=== PATIENT | female | born 1950 | race Caucasian/White ===

== ENCOUNTER 2017-01-11 06:28 | Day surgery (SDC) | payer MEDICARE ==
[~2017-01-11] VITALS: Ht 167.6 cm; Wt 104.8 kg
[~2017-01-11 06:28] MED LIST: ADULT LOW DOSE81 MG PO; ALLOPURINOL300 MG PO; AMLODIPINE BES2.5 MG PO; CALCIUM + VITA1 EACH PO; CALCIUM 600+D31 EACH PO; CVS GLUCOSAMIN PO; CYCLOBENZAPRINE10 MG PO; GLIPIZIDE XL5 MG PO; HYDROCODON-ACE1 EA11 PO; HYDROCODON-ACE1 EAC8 PO; HYDROMORPHONE HC2 MG PO; HYDROMORPHONE HC4 MG PO; LEVEMIR100 UNIT/1 SUB-Q; LISINOPRIL40 MG PO; MELATONIN10 M2 PO; MELOXICAM15 MG PO; MIRALAX17 GM PO; MULTI VITAMIN1 EACH PO; NABUMETONE750 MG PO; SIMVASTATIN40 MG PO; SYNTHROID75 MCG PO; XARELTO10 MG PO
--- NOTE | 2017-01-11 07:17 | NUR ---
0630-PATIENT ARRIVED FOR COLONOSCOPY TODAY. REPORTS FELL LAST NIGHT IN WHICH EMS CAME TO HOUSE BUT WAS NOT TRANSPORTED TO HOSPITAL. PATIENT REPORTS LEFT LEG AND LEFT BIG TOE HURTING. PATIENT REPORTS FEELING WEAK. LEFT BIG TOE REDDENED AND A LITTLE BRUISED. PATIENT WAS ABLE TO WALK FROM HOUSE TO THE CAR WITH WALKER THIS AM. WILL UPDATE MD AND DISCUSSED WITH PATIENT ABOUT CALLING PCP THIS AM AND LETTING KNOW. DAUGHTER AT BEDSIDE AND VERBALIZED UNDERSTANDING.
--- NOTE | 2017-01-11 08:03 | NUR ---
01/11/17 0803 IsaiahDeepak holbrook SAT 98%, O2 TURNED OFF.
--- NOTE | 2017-01-11 17:49 | OR ---
[facility] [address] [place], [place] [address] Signed DATE OF PROCEDURE: 01/11/17 PREOPERATIVE DIAGNOSIS: Screening. POSTOPERATIVE DIAGNOSES Large external hemorrhoids. Internal anal skin tag. Minimal to moderate sigmoid diverticulosis. PROCEDURE: Colonoscopy without biopsy. ESTIMATED BLOOD LOSS: None. INDICATIONS Eric is a 66-year-old female who was asked to see me for a screening colonoscopy. She says she has no lower GI complaints. She has never had a previous colonoscopy. There is no family history of colon cancer or polyps. In the office, I gave Eric pamphlet on colonoscopy and we have reviewed the nature of the test along with the risks including, but not limited to gas bloating, crampy abdominal pain, bleeding, perforation requiring surgery, and missed diagnosis. We also discussed the need for IV conscious sedation. She had expressed understanding, wished to proceed. PROCEDURE IN DETAIL Eric was taken into our endoscopy suite and placed in the left lateral decubitus position. She was given 125 mcg of Fentanyl and 6 mg of Versed for the procedure. A digital rectal exam was performed and she has large circumferential external hemorrhoids. We also gave her preoperative antibiotics. She also told us that she fell last evening and has had some bruising on her on her left hip and she also has gout and her toe was quite swollen and red. Apparently, the EMS came but she was not taken to the hospital. She is encouraged to see her primary care provider with respect to the above. After this, the adult colonoscope was introduced and advanced all around into the cecum under direct visualization of camera without difficulty. Her prep was generally good. There were a couple areas of liquid stool, I could not quite irrigate out completely but for the most part it was good. The scope was then slowly withdrawn. We could easily see the cecum in the ileocecal valve. We saw diverticula in the left and sigmoid colon. They were minimal to moderate in size in number and scattered about. The rectum itself was unremarkable. Upon retroflexion of scope, she has a single moderate-sized internal anal skin tag. After this, the gas was suctioned out. The colonoscope removed. Eric tolerated the procedure quite well. RECOMMENDATIONS Eric will follow up me in 10 years for repeat colonoscopy. She is also going to come Electronically Signed By: NIEVES VÁSQUEZ MD 01/11/17 1749 PATIENT NAME: ERIC RIVERA OPERATIVE REPORT DATE OF : 46 PHYSICIAN: NIEVES VÁSQUEZ MD REPORT #: [id number] REPORT IS CONFIDENTIAL AND NOT TO BE RELEASED WITHOUT AUTHORIZATION [facility] [address] [place] [id number] Signed back to the office for subcutaneous mass on her inner right thigh. MD MALLIKA Amezquita/Derejel /[id number] cc: Ernst Jaramillo MD Electronically Signed By: NIEVES VÁSQUEZ MD 01/11/17 1749 PATIENT NAME: ERIC RIVERA OPERATIVE REPORT DATE OF : 46 PHYSICIAN: NIEVES VÁSQUEZ MD REPORT #: [id number] REPORT IS CONFIDENTIAL AND NOT TO BE RELEASED WITHOUT AUTHORIZATION
== END 2017-01-11 08:30 | disposition home or self-care (01) ==
LOC: DS 06:28 → OPS 06:28 → DS 06:45 → OPS 08:30
PROVIDERS: Colon & Rectal Surgery
PROC: 0DJD8ZZ Inspection of Lower Intestinal Tract, Via Natural or Artificial Opening Endoscopic (ICD-10-PCS; principal; 2017-01-11 06:45)
DX: Z12.11 Encounter for screening for malignant neoplasm of colon (principal); K64.8 Other hemorrhoids; K64.4 Residual hemorrhoidal skin tags; K57.30 Diverticulosis of large intestine without perforation or abscess without bleeding; I10 Essential (primary) hypertension; J45.909 Unspecified asthma, uncomplicated; E78.5 Hyperlipidemia, unspecified; E66.9 Obesity, unspecified; E11.9 Type 2 diabetes mellitus without complications; M19.90 Unspecified osteoarthritis, unspecified site; M10.9 Gout, unspecified; E11.42 Type 2 diabetes mellitus with diabetic polyneuropathy; F41.9 Anxiety disorder, unspecified; Z90.49 Acquired absence of other specified parts of digestive tract; Z90.710 Acquired absence of both cervix and uterus; Z96.653 Presence of artificial knee joint, bilateral; Z79.899 Other long term (current) drug therapy; Z79.82 Long term (current) use of aspirin; Z98.890 Other specified postprocedural states; Z87.891 Personal history of nicotine dependence; Z88.1 Allergy status to other antibiotic agents; Z88.0 Allergy status to penicillin; Z91.041 Radiographic dye allergy status; Z91.013 Allergy to seafood; Z88.8 Allergy status to other drugs, medicaments and biological substances; Z68.39 Body mass index [BMI] 39.0-39.9, adult
CPT/HCPCS: 99152; 99153; J2250; J3010; J3490; J7120

== ENCOUNTER 2017-01-19 05:40 | Day surgery (SDC) | payer MEDICARE ==
[~2017-01-19] VITALS: Ht 167.6 cm; Wt 104.8 kg
--- NOTE | 2017-01-19 08:34 | NUR ---
[facility]/17 [facility]34 [facility] O2 DECREAS[facility] TO 6L.
--- NOTE | 2017-01-22 10:35 | OR ---
[facility] [address] [place], [place] [address] Signed DATE OF PROCEDURE: 01/19/17 PREOPERATIVE DIAGNOSIS Right inner thigh subcutaneous mass (approximately 10 cm). POSTOPERATIVE DIAGNOSIS Right inner thigh subcutaneous mass (approximately 10 cm). PROCEDURE Excision of right thigh subcutaneous mass. ESTIMATED BLOOD LOSS: None. INDICATIONS Eric is a 66-year-old obese diabetic female who removed all the carbohydrates from her diet and dropped 200 pounds. She ended up with a panniculectomy in the [facility]. She said that that has been a life changer. She also has a very large lump on the right inner midthigh. It is approaching 10 cm. On the top, it is very hard and indurated and underneath it is very soft. It rubs on the other her other thigh and it is quite irritated. To her knowledge, it has never drained or been infected. She had me look at to consider having it removed. I explained to Eric it is just too large to remove under superior local anesthetic in the office. Consequently, we scheduled her for monitored anesthesia care and local anesthetic over the hospital. Indeed we had an extra nurse scrub in because in order to hold the redundant skin in order to excise this lesion. I explained to Eric the nature of the surgery along with the risks including, but not limited to bleeding, infection, scarring, change in contour of the skin, as well as possible need for additional surgery based on pathology results. She had expressed understanding and wished to proceed. PROCEDURE NOTE I met with Eric in our preop area with our nurse. We all could easily identify her lesion. We marked that appropriately. She was then taken into our operating room and placed in the supine position under monitored anesthesia care per our nurse doughmaker. We used appropriate padding. We brought her right leg up so we could access the right inner thigh. It was then prepped and draped in the usual sterile fashion. She was given preoperative antibiotics along with subcutaneous heparin. SCDs were utilized. We then made a vertical incision over the lesion went down around the lesion bluntly and with the cautery. It was at least a size of soft baseball. We felt we had the entire lesion removed. She had very thin redundant skin over the center portion and so we excised that redundant skin back to more healthy thicker skin. We then used 3-0 interrupted subcuticular Monocryl suture to bring the dermis together. The skin edges were reapproximated with a running 6-0 fast absorbing plain gut suture. We had used local Electronically Signed By: NIEVES VÁSQUEZ MD 01/19/17 1316 Electronically Signed By: NIEVES VÁSQUEZ MD 01/23/17 0540 PATIENT NAME: ERIC RIVERA OPERATIVE REPORT DATE OF : 46 PHYSICIAN: NIEVES VÁSQUEZ MD REPORT #: [id number] REPORT IS CONFIDENTIAL AND NOT TO BE RELEASED WITHOUT AUTHORIZATION [address] [address] Signed anesthetic completely around the lesion and underneath the lesion prior to the excision. After this, dry gauze and tape was applied. She was then transferred to her hospital bed and taken in to the recovery room in stable condition. MD MALLIKA Amezquita/Modl /[id number] cc: Ernst Jaramillo MD Electronically Signed By: NIEVES VÁSQUEZ MD 01/19/17 1316 Electronically Signed By: NIEVES VÁSQUEZ MD 01/23/17 0540 PATIENT NAME: ERIC RIVERA OPERATIVE REPORT DATE OF : 46 PHYSICIAN: NIEVES VÁSQUEZ MD REPORT #: [id number] REPORT IS CONFIDENTIAL AND NOT TO BE RELEASED WITHOUT AUTHORIZATION
== END 2017-01-19 09:10 | disposition home or self-care (01) ==
LOC: DS 05:40
PROVIDERS: Colon & Rectal Surgery
PROC: 0JBL0ZZ Excision of Right Upper Leg Subcutaneous Tissue and Fascia, Open Approach (ICD-10-PCS; principal; 2017-01-19 06:45)
DX: D17.23 Benign lipomatous neoplasm of skin and subcutaneous tissue of right leg (principal); E78.5 Hyperlipidemia, unspecified; J45.909 Unspecified asthma, uncomplicated; E66.9 Obesity, unspecified; E03.9 Hypothyroidism, unspecified; M19.90 Unspecified osteoarthritis, unspecified site; M10.9 Gout, unspecified; E11.40 Type 2 diabetes mellitus with diabetic neuropathy, unspecified; F41.9 Anxiety disorder, unspecified; I10 Essential (primary) hypertension; Z96.653 Presence of artificial knee joint, bilateral; Z90.49 Acquired absence of other specified parts of digestive tract; Z98.890 Other specified postprocedural states; Z68.39 Body mass index [BMI] 39.0-39.9, adult
CPT/HCPCS: 00400; 88304; 88311; J0690; J1100; J1644; J1885; J2250; J2405; J2704; J3010; J7120

== ENCOUNTER 2018-04-14 11:12 | Observation (INO) | payer MEDICARE ==
[~2018-04-14] VITALS: Ht 167.6 cm; Wt 122.0 kg
[~2018-04-14 11:12] MED LIST changes: +BACLOFEN20 MG PO; +BAYER CHEWABLE81 MG PO; +FAMOTIDINE40 MG PO; +GABAPENTIN600 MG PO; +INTRINSI B12-F1 EACH PO; +KEFLEX500 MG PO; +MOBIC15 MG PO
[2018-04-14] MEDS ORDERED: DILAUDID4 MG PO (12:10)
[2018-04-14] MEDS ORDERED: NORCO 5-325 TA1 EACH PO (12:11)
[2018-04-14] MEDS ORDERED: HYDROXYZINE PAM25 MG PO (13:00)
--- NOTE | 2018-04-14 14:22 | EKG ---
[facility] [address] [facility] [place] [address] Signed Normal sinus rhythm Possible Left atrial enlargement Cannot rule out Inferior infarct , age undetermined Abnormal ECG When compared with ECG of 26-DEC-2016 13:19, Minimal criteria for Inferior infarct are now present T wave inversion now evident in Inferior leads Confirmed by OLGA NORTON DO ([id number]) on 04/14/2018 2:22:21 PM Electronically Signed By: OLGA NORTON DO 04/14/18 1422 PATIENT NAME: ERIC RIVERA DERICKPRAVIN Electrocardiogram DATE OF : 46 PHYSICIAN: OLGA NORTON DO REPORT #: [id number] REPORT IS CONFIDENTIAL AND NOT TO BE RELEASED WITHOUT AUTHORIZATION
--- NOTE | 2018-04-14 17:00 | NUR ---
PT ARRIVED FROM ED. PT TRANSFERED WITH 4PA TO BED. ASSESSMENT DONE. PT ORIENTED TO ALL BUT DATE. CONFUSED AT TIMES. SURGICAL SITE WOUND ON BACK - CDI; ABRASION NOTED UNDER RIGHT SIDED PANNUS; WOUND NOTED ON MONDS - POSSIBLE ABCESS. PT REPORTS 4/10 PAIN AND DENIES NAUSEA. PT ASSISTED WITH ORDERING DINNER. PIVS ASSESSED, PIV IN LEFT AC INFILTRATING, DCD' PER PROTOCOL GAUZE AND COBAN APPLIED. BED RAILS UP. CALL LIGHT WITHIN REACH. SON AT BEDSIDE. NO ADDITIONAL REQUESTS OR COMPLAINTS AT THIS TIME.
--- NOTE | 2018-04-14 18:32 | NUR ---
PT ADMITTED FROM ED TODAY FOR UTI AND ENCEPHALOPATHY. PT ORIENTED TO ALL BUT DATE, CONFUSED AND ANXIOUS AT TIMES. ADA DIET WITH BLOOD SUGAR CHECKS AND SLINDING SCALE INSULIN, 4 UNITS GIVEN THIS EVENING. PT RECENT POST OP, DISCHARGED 2 DAYS AGO AFTER LUMBAR FUSION SURGERY. DRESSING REMAINS IN PLACE, CDI AT THIS TIME. IV POTASSIUM STARTED THIS EVENING. PO NORCO GIVEN X1 FOR 7/10 PAIN. CEFEPIME INFUSING. DEPENDS IN PLACE, VOIDING QUANTITY SUFFICIENT THIS SHIFT, STRAIGHT CATH IN ED. BED ALAMAM ON. PT USES CALL LIGHT INCONSISITNATLY.
--- NOTE | 2018-04-14 19:03 | NUR ---
PUMPS CONTINUE TO ALARM. PIV ASSESSED, FLUSHES EASILY IN STRIGHT POSITION. IV FLUIDS AND CEFEPIME CONTINUE TO INFUSE. NEW PIV STARTED IN LEFT FORARM PER PROTOCOL. BLOOD RETURN NOTED WITH IV START. NEW LINE INFUSING POTASSIUM FLUIDS AT 250. PT FINISHED WITH DINNER. NO REQUESTS OR COMPLAINTS AT THIS TIME. FAMILY AT BEDSIDE. CALL LIGHT WITHIN REACH.
--- NOTE | 2018-04-14 19:20 | NUR ---
BEDSIDE REPORT RECEIVED FROM OFFGOING RN. PT RESTING IN BED WITH DAUGHTER AT BEDSIDE. PT PARTICIPATES IN REPORT, REPORTS FORGETFULNESS. DENIES FURTHER NEEDS AT THIS TIME. CALL LIGHT WITHIN REACH.
--- NOTE | 2018-04-14 20:51 | NUR ---
PT UTILIZES CALL LIGHT, DAUGHTER AT BEDSIDE. DAUGHTER AND PT EXPRESS CONCERN THAT PT WAS NOT ORDERED HER DILAUDID WAS PREVIOUSLY BEING USED PRIOR TO ADMISSION. PT STATES THAT THE DOCTOR "THOUGHT IT WAS MAKING ME CONFUSED, BUT IT WASN'T. IT WAS JUST THE UTI." PT STATES THAT PAIN TO BACK IS 7/10. MD NOTIFIED OF PT AND FAMILY'S CONCERN, DECLINES TO ORDER HYDROMORPHONE AT THIS TIME. EDUCATION REGARDING NARCOTIC PAIN MEDICATION AND CONFUSION TO BE REINFORCED.
--- NOTE | 2018-04-14 21:30 | NUR ---
PT ASSESSMENT COMPLETE. PT REPORTING PAIN 7/10 TO BACK. PRN HYDROCODONE TO BE ADMINISTERED. PT DENIES NAUSEA OR SOB AT THIS TIME. ATTENDS IN PLACE FOR INCONTINENCE, DRY AT THIS TIME. ALLEVYN FOAM TO R UNDER PANNUS, C/D/I. HARDENED LUMP 1CMX 1CM TO MONS PUBIS WITH PURULENT DRAINAGE PRESENT. SURGICAL DRESSING PRESENT TO PT'S LOWER BACK. C/D/I. REDNESS/ OLD BLISTERS PRESENT TO LOWER BACK. PT STATES THAT SHE WAS ALLERGIC TO PREVIOUS SURGICAL DRESSING. PT REQUESTS THAT LEG BE REPOSITIONED DUE TO "SCIATIC PAIN". LEG PROPPED WITH PILLOW. HEEL PROTECTORS PLACED FOR PT COMFORT. PT DENIES FURTHER NEEDS AT THIS TIME. CALL LIGHT WITHIN REACH.
--- NOTE | 2018-04-14 22:30 | NUR ---
PT RESTING IN BED AWAKE AFTER HAVING ATTENDS CHANGED. PT STATES THAT PAIN IS MUCH BETTER, RATES 4/10. SCHEDULED ABX ADMINISTERED ORDERED. PT DENIES FURTHER NEEDS AT THIS TIME. CALL LIGHT WITHIN REACH.
--- NOTE | 2018-04-14 23:13 | NUR ---
V/S AND I&O DONE AND CHARTED. BRUNO DASILVA AND I CLEANED AND CHANGED PATIENT'S ATTENDS. CALL LIGHT AND SIDE TABLE WITHIN REACH.
--- NOTE | 2018-04-15 02:47 | NUR ---
PT ASSESSMENT COMPLETE. PT RATES PAIN 11/16 TO BACK AND LLE. PRN NORCO ADMINISTERED. PT ORIENTED TO ALL. ATTENDS CHANGED, PT INCONTINENT. NEW ATTENDS IN PLACE. ALLEVYN FOAM TO UNDER PANNUS C/D/I. DRESSING TO LOW BACK C/D/I. NEW ICE WATER PROVIDED. PT DENIES FURTHER NEEDS AT THIS TIME. CALL LIGHT WITHIN REACH.
--- NOTE | 2018-04-15 06:33 | NUR ---
PT RESTING IN BED WITH EYES CLOSED. PT WAKES EASILY TO VOICE. PT RATES PAIN 4-5/10 WHEN SHE IS NOT MOVING. PT STATES PAIN UP TO 7-8/10 WHEN SHE MOVES. PT INFORMED TOO EARLY TO HAVE PACO, SHE STATES UNDERSTANDING. PT ASSESSMENT COMPLETE. UNCHANGED FROM PREVIOUS. SUPERVISOR CAP AND HAT PRODUCTION'S IN ROOM TO CHANGE AND REPOSITION PT. PT DENIES FURTHER NEEDS AT THIS TIME.
--- NOTE | 2018-04-15 09:05 | NUR ---
PT LYING IN BED. ATE A SMALL AMOUNT OF BREAKFAST BUT STATES "IT JUST DOESN'T SOUND THAT GOOD." REFUSED OFFER OF ENSURE. PT DENIES PAIN AT REST BUT STATES "WHEN I MOVE IT HURTS REALLY BAD". ALERT AND ORIENTED THIS AM. CALL LIGHT WITHIN REACH.
--- NOTE | 2018-04-15 10:05 | NUR ---
SPOKE WITH PATIENT IN ROOM. PATIENT STATES SHE FEELS BETTER TODAY. STATES SHE HAD A WEIRD DREAM LAST NIGHT AND WAS CONFUSED FOR A COUPLE DAYS. SHE STATES SHE LIVES WITH DAUGHTER MAYE AND PLANS TO RETURN HOME WITH HER. SHE HAS A 2WHEEL WALKER AT HOME. HAS 2 STEPS GOING INTO HOME, BUT NO OTHER STAIRS. PATIENT VERY TALKATIVE ABOUT HER HISTORY AND STATES SHE DOESN'T WANT TO GO TO A LONG TERM AT DISCHARGE. DISCUSSED WE WILL WORK TOWARDS HER GOAL OF HOME DISCHARGE. WILL CONTINUE TO FOLLOW FOR DISCHARGE.
--- NOTE | 2018-04-15 10:30 | NUR ---
PATIENT CLEANED UP AND DEP[ENDS CHANGED BY THIS CARRIAGE DOGGER AND CARRIAGE DOGGERDelmar LOWE. CALL LIGHT IN REACH. NO FURTHER NEEDS AT THIS TIME.
--- NOTE | 2018-04-15 11:05 | NUR ---
PT LYING IN BED WATCHING TV. DENIES NEEDS OR CONCERNS AT THIS TIME. CHANGED RECENTLY BY TRAIN GATE ATTENDANT'S. PT REMAINS FULLY ALERT AND ORIENTED AT THIS TIME. CALL LIGHT WITHIN REACH.
--- NOTE | 2018-04-15 12:51 | NUR ---
PT LAYING IN BED, ALERT AND ORIENTED. UNDER THE CIRCUMSTANCES SHE WAS IN GOOD SPIRITS-EVEN ABLE TO LAUGH AND JOKE SOME. R HAND IN PAIN, SEVERLY BRUISED SHE SAID FROM EMT ATTEMPT TO START IV. PT REQUESTED PRAYER, WILL FOLLOW NEDED
--- NOTE | 2018-04-15 13:41 | NUR ---
PT ATTENDS CHANGED. REPOSITIONED IN BED. MEDICATED WITH PRN NORCO FOR 5/10 BACK PAIN. MADE PLAN TO RETURN SHORTLY TO ASSIST PT TO SIT AT EDGE OF BED. PT AGREEABLE AT THIS TIME. CALL LIGHT WITHIN REACH.
--- NOTE | 2018-04-15 16:04 | NUR ---
PT ASSISTED TO EDGE OF BED WITH ASSISTANCE FROM MYNOR CARR AND ELIZABETH CARR. DRESSING TO LOWER BACK NOTED TO BE SOILED. REMOVED AT THIS TIME. DR. MILLER ASSESSED SITE. CLEANED GENTLY WITH STERILE SALINE AND DRESSED WITH GAUZE AND OPSITE PER DR. MILLER. PT DIANA SITTING AT EDGE OF BED. ASSISTED BACK TO BED AND ASSISTED TO POSITION OF COMFORT. ATTENDS CHANGED PRIOR TO SITTING UP. CALL LIGHT WITHIN REACH.
--- NOTE | 2018-04-15 18:40 | NUR ---
PT REFUSED DINNER. MEDICATED WITH PRN NORCO PER REQUEST FOR 510 PAIN. HAS REMAINED ALERT AND ORIENTED THROUGHOUT SHIFT. CALL LIGHT WITHIN REACH.
--- NOTE | 2018-04-15 19:10 | NUR ---
BEDSIDE REPORT RECEIVED FROM OFFGOING RN. PT ABLE TO PARTICIPATE IN REPORT, AGREES THAT SHE IS MUCH MORE ORIENTED AT THIS TIME. PT DENIES NEEDS. CALL LIGHT WITHIN REACH.
--- NOTE | 2018-04-15 21:19 | NUR ---
PT ASSESSMENT COMPLETE. PT RESTING IN BED AWAKE, VS BEING PERFORMED BY PAYROLL AND BENEFITS MANAGER. PT STATES THAT PAIN IS 5/10 WHEN NOT MOVING, 8/10 WITH MOVEMENT. PT INFORMED TOO EARLY FOR PRN, PT STATES UNDERSTANDING. PT WOULD LIKE PRN WHEN AVAILABLE. PT ORIENTED X 4, PT DISCUSSING LUCID DREAMS FROM PREVIOUS NIGHT. DRESSING TO LOW BACK C/D/I. FOAM DRESSING TO R UNDER PANNUS C/D/I. ATTENDS IN PLACE FOR INCONTINENCE, CHAGNED AT THIS TIME. PT REPOSITIONED AND PROPPED WITH PILLOWS. GENERALIZED EDEMA PRESENT TO ALL EXTREMITIES. PT DENIES FURTHER NEEDS AT THIS TIME. CALL LIGHT WITHIN REACH.
--- NOTE | 2018-04-15 23:12 | NUR ---
PT UTILIZES CALL LIGHT, REQUESTS PRN PAIN MEDICATION. PT STATES PAIN IS 9.5/10 "THE ONLY REASON I DON'T SAY 10/10 IS BECAUSE I'M NOT IN A BUCKET OF TEARS". PRN NORCO ADMINISTERED. PT STATES "OH, AND I NEED TO BE CHANGED". INQUIRED WHETHER PT TYPICALLY IS INCONTINENT AT HOME. PT STATES THAT SHE IS NOT. CNA HHA ASKS WHY PT IS NOT SUING THE BATHROOM SINCE ADMISSION TO THE HOSPITAL. PT STATES BECAUSE SHE "WOULD BE ON THE TOILET NON-STOP". PT ENCOURAGED TO USE THE BATHROOM WHEN ABLE, TO USE CALL LIGHT WHEN SHE FEELS THE URGE TO VOID. EDUCATION RPOVIDED REGARDING RISK FACTORS FOR UTI'S. PT STATES UNDERSTANDING. DENIES FURTHER NEEDS AT THIS TIME. CALL LIGHT WITHIN REACH.
--- NOTE | 2018-04-16 01:11 | NUR ---
2 PA CHANGED PATIENT'S ATTENDS.
--- NOTE | 2018-04-16 01:30 | NUR ---
RN TO ROOM FOR IV ALARMING. PT LYING IN BED AWAKE. PT RATES PAIN 4-5/10. STATES IT IS MUCH BETTER CONTROLLED AT THIS TIME. PT REQUESTS FRESH ICE WATER, PROVIDED. PT STATES "I DON'T KNOW WHY I NEED WATER, I'M GOING BACK TO SLEEP." CALL LIGHT IN REACH.
--- NOTE | 2018-04-16 03:30 | NUR ---
PT ASSESSMENT COMPLETE. PT UTILIZES CALL LIGHT, REQUESTS PRN PAIN MEDICATION FOR 5/10 BACK PAIN. ASSESSMENT UNCHANGED FROM PREVIOUS. PT DENIES FURTHER NEEDS AT THIS TIME. CALL LIGHT WITHIN REACH.
--- NOTE | 2018-04-16 06:10 | NUR ---
PT SLEPT MAJORITY OF SHIFT. NORCO X2 FOR PAIN. ATTENDS IN PLACE. PT STATES SHE TYPICALLY USES BATHROOM AT HOME. ENCOURAGE PT TO USE BATHROOM RATHER THAN ATTENDS. DRESSING TO LOW BACK C/D/I. ALLEVYN FOAM UNDER PANNUS C/D/I. ACCUCHECKS AND SSI. ADA DIET. LOW APPETITE, ENCOURAGE INTAKE. CEFEPIME. LR @ 75. 2 PA.
--- NOTE | 2018-04-16 08:50 | NUR ---
PT LYING IN BED AWAKE. ALERT AND ORIENTED TO ALL. RATING PAIN 5/10. MEDICATED WITH PRN NORCO. ATE A COUPLE BITES OF BREAKFAST BUT STATES IT DOESN'T TASTE GOOD IT SOUNDED. DENIES WANTING ANYTHING ELSE TO EAT AT THIS TIME. PT ATTENDS CHANGED. DISCUSSED PLAN OF CARE FOR TODAY AND GOAL TO GET OUT OF BED. PT HESITANT BUT AGREEABLE AT THIS TIME. IVF INFUSING WNL. CALL LIGHT WITHIN REACH.
--- NOTE | 2018-04-16 10:25 | NUR ---
ATTENDS CHANGED. BARRIER CREAM APPLIED TO RACHELLE AREA. PT DENIES PAIN AT OR OTHER CONCERN AT THIS TIME. CALL LIGHT WITHIN REACH.
[2018-04-16] MEDS ORDERED: ONDANSETRON ODT4 MG PO (11:21)
[2018-04-16] MEDS ORDERED: SENNA8.6 MG PO (11:22)
[2018-04-16] MEDS ORDERED: DOK100 MG PO (11:59)
[2018-04-16] MEDS ORDERED: HYDROMORPHONE HC2 MG PO (12:02)
--- NOTE | 2018-04-16 12:15 | NUR ---
PT HAD EXTRA LARGE INCONTINENT VOID WITH SMALL INCONTINENT STOOL. ATTENDS CHANGED AND PT CLEANED THOROUGHLY, BARRIER CREAM APPLIED TO RACHELLE AREA. PT REQUIRED ENCOURAGEMENT AND MUCH EDUCATION ON IMPORTANCE OF GETTING OUT OF BED AND AMBULATING. PT AGREEABLE TO SIT AT EDGE OF BED FOR LUNCH. WAS ABLE TO SIT UP WITH MINIMAL ASSISTANCE. PT SAT UP FOR APPROX 15 MIN WHEN SHE ASKED TO LIE BACK DOWN AGAIN STATED "IT HURTS TOO MUCH, I CAN'T SIT UP LIKE THIS WITHOUT PAIN MEDICATION ON BOARD." PT MEDICATED JUST A FEW MINUTES PREVIOUSLY WITH PRN NORCO. PT WAS ABLE TO STAND WITH WALKER AND MINIMAL ASSIST, SIDE STEP TO HEAD OF BED AND SIT BACK IN BED, REQUIRED ASSISTANCE TO LIFT LEGS INTO BED. ONCE IN BED ATTENDS WERE CHANGED AGAIN AND PT ASSISTED TO POSITION OF COMFORT. DAUGHTER AT BEDSIDE. CALL LIGHT WITHIN REACH.
[2018-04-16] MEDS ORDERED: BACTRIM DS TAB1 EACH PO (13:21)
--- NOTE | 2018-04-16 13:46 | NUR ---
PT SITTING UP IN BED, STARTING TO EAT LUNCH, DAUGHTER VISITING. PT JOVIAL, MENTIONED THAT SHE IS FEELING BETTER. PT STATED SHE DID GET UP SOME TODAY, BUT NOT ENOUGH. PT ALSO SAID SHE SEEMS TO LIKE THE NEW MENU. EXTENDED A BLESSING, ENCOURAGED HER TO KEEP WORKING. WILL FOLLOW A NEEDED
--- NOTE | 2018-04-16 14:17 | NUR ---
MED REC COMPLETE
--- NOTE | 2018-04-16 14:40 | NUR ---
PT SITTING UP IN BED VISITING WITH DAUGHTER. REMAINS ALERT AND ORIENTED. ATTENDS CHANGED. REPOSITIONED. CALL LIGHT WITHIN REACH.IV SL.
--- NOTE | 2018-04-16 16:04 | NUR ---
PT WORKED WITH P.T. AMB TO BATHROOM. HAD LARGE BM. AMB BACK TO BED WITH WALKER AND MINIMAL SBA. DIANA WELL. CALL LIGHT WITHIN REACH.
--- NOTE | 2018-04-16 17:52 | NUR ---
PT SITTING UP IN BED EATING DINNER, DIANA WELL. PT DENIES PAIN AT THIS TIME OR OTHER NEEDS OR CONCERNS. ALERT AND ORIENTED TO ALL, APPROPRIATE. CALL LIGHT WITHIN REACH.
--- NOTE | 2018-04-16 19:21 | NUR ---
RECIEVED CHANGE OF SHIFT FROM KENDALL POE. PATIENT LAYING AWAKE IN BED. FRESH WATER BROUGHT TO PATIENT. INFORMED DOMESTIC CLEANER TO CHANGE PATIENT ATTENDS PER PATIENT REPORT OF INCONTINENCE IN BED. CALL LIGHT WITHIN REACH. NO MORE NEEDS AT THIS TIME.
--- NOTE | 2018-04-16 21:05 | NUR ---
ASSESSMENT COMPLETE. PATIENT DENIES CHEST PAIN, SOB, DIFFICULTY BREATHING. DRESSING ON LEFT FOREARM IV CHANGED. IV IN LEFT FOREARM AND RIGHT AC, PATENT AND PATIENT DENIES PAIN. PATIENT REPORTS PASSING FLATUS. PATIENT OFFERED TO SIT ON SIDE OF BED ON HER OWN TO ALLOW FOR DRESSING ON BACK TO BE ASSESSED. DRESSING ON LOWER BACK ASSESSED, NO DRAINAGE NOTED. PATIENT REPORTS "6/10" PAIN IN LOWER BACK, PRN PAIN MEDICATION PROVIDER PER ORDER. FRESH WATER BROUGHT TO PATIENT. CALL LIGHT WITHIN REACH. NO MORE NEEDS AT THIS TIME.
--- NOTE | 2018-04-16 23:43 | NUR ---
PATIENT ASSISTED TO THE RESTROOM A SBA W/FWW. PATIENT WAS ABLE TO AMBULATE TO THE RESTRROM. PATIENT HAD X1 SMALL BM. PATIENT WAS ALSO INCONTINENT OF URINE. PATIENT IS BACK IN BED RESTING. PATIENT TOLERATED AMBULATION WELL. PATIENT GIVNE PRN TYLENOL PER ORDER. PATIENT DENIES ANY FURTHER NEEDS. CALL LIGHT IN REACH.
--- NOTE | 2018-04-17 00:02 | NUR ---
V/S AND I&O DONE AND RECORDED.
--- NOTE | 2018-04-17 00:03 | NUR ---
1 TO 2 PA TO THE TOILET. PATIENT USED THE CALL LIGHT AND STATED NEEDS TO BE CHANGED ATTENDS. PATIENT ALREADY VOIDED ON ATTENDS.
--- NOTE | 2018-04-17 00:50 | NUR ---
ROUNDED ON PATIENT RESTING IN BED WITH EYES CLOSED, RESPIRATORY RATE IS EVEN AND UNLABORED. RR: 18. NO SIGNS OF TENSING OR GRIMACING. CALL LIGHT WITHIN REACH.
--- NOTE | 2018-04-17 02:37 | NUR ---
ASSESSEMENT COMPLETE. FRESH WATER BROUGHT TO PATIENT. PATIENT USED INCENTIVE SPIROMETER. PATIENT REPORTS "6/10" PAIN IN LOWER BACK, PRN PAIN MEDICATION PROVIDED AT 0140 BEFORE ASSESSMENT. IV IN RIGHT AC AND LEFT FOREARM, PATENT, WNL. PATINET DENIES SOB, DIFFICULTY BREATHING OR CHEST PAIN. PATIENT REPORTS FEELING "WET", MINE ENGINEER MARICARMEN NOTIFIED TO ASSIST PATIENT IN CHANGING ATTENDS. PATIENT ABLE TO AMBULATE TO RESTROOM WITH MINE ENGINEER SBA WITH FWW. ROOM AIR. CALL LIGHT WITHIN REACH. NO MORE NEEDS AT THIS TIME.
--- NOTE | 2018-04-17 03:48 | NUR ---
PATIENT IS RESTING IN BED WITH EYES CLOSED, RR 17. CALL LIGHT IN REACH.
--- NOTE | 2018-04-17 04:29 | NUR ---
ROOM AIR. ADA DIET. 1PA, FWW. INCONTINENT, ENCOURAGE AMBULATION TO RESTROOM. INCENTIVE SPIROMETER AT BEDSIDE. WORKS WITH PHYSICAL THERAPY. PO ABX. PRN PAIN MEDICATION X3 THIS SHIFT. PATIENT SLEPT ON AND OFF THROUGHOUT SHIFT.
--- NOTE | 2018-04-17 06:06 | NUR ---
ROUNDED ON PATIENT RESTING AWAKE IN BED. PATIENT REPORTS PAIN A "6/10" IN LOWER BACK, PRN PAIN MEDICATION PROVIDED. VITALS ASSESSED AND RECORDED. INTAKE AND OUTPUT ASSESSED AND RECORDED. PATIENT AMBULATED TO RESTROOM SBA WITH FWW, NEW ATTENDS IN PLACE. PATIENT SAFELY BACK INTO BED WITH ASSISTANCE FROM THIS RN A SBA WITH FWW. FRESH WATER BROUGHT TO PATIENT. SCHEDULED MEDICATION ADMINISTRED PER ORDER. REDDENED AREA ASSESSS ON BACK TO BE BLANCHABLE, DRESSING ON LOWER BACK IS C/D/I. CALL LIGHT WITHIN REACH. NO MORE NEEDS AT THIS TIME.
--- NOTE | 2018-04-17 07:31 | NUR ---
PT AWAKE, SITTING IN BED AT THIS TIME. PT REPORTS PAIN LEVEL OF 2/10 AND STATES THIS IS TOLERABLE. PT DENIES NEED TO VOID. PLAN OF CARE DISCUSSED. PERSONAL SUPPLIES AND CALL LIGHT WITHIN REACH.
--- NOTE | 2018-04-17 08:23 | NUR ---
BLOOD SUGAR TAKEN AND DOCUMENTED. PT BOOSTED UP IN BED. FRESH ICE WATER GIVEN. PT STATES SHE HAS NO NEEDS AT THIS TIME. INFORMED PT TO CALL IF SHE NEEDS ANYTHING. CALL LIGHT IS IN REACH.
--- NOTE | 2018-04-17 10:04 | NUR ---
VS AND I&O'S TAKEN AND DOCUMENTED. WILL INFORM RN OF LOW BP. PT HAS NO NEEDS AT THIS TIME. PT WOULD LIKE TO WAIT UNTIL AFTER PHYSICAL THERAPY. WILL CONTINUE TO MONITOR. CALL LIGHT IS IN REACH.
--- NOTE | 2018-04-17 11:38 | NUR ---
PT UP IN CHAIR AT THIS TIME. PT DENIES PAIN. PT ON RA, RESP EVEN AND NON LABORED. PT DENIES NEED TO VOID. RACHELLE PAD INTACT. PERSONAL SUPPLIES AND CALL LIGHT WITHIN REACH. NO NEEDS AT THIS TIME.
--- NOTE | 2018-04-17 13:36 | NUR ---
PT LAYING IN BED, ALERT AND ORIENTED. KNOWS SHE NEEDS TO GET UP AND WALK IN ORDER TO BE DC'D. GAVE ENCOURAGEMENT AND A BLESSING. WILL FOLLOW NEEDED
== END 2018-04-17 16:16 | disposition home or self-care (01) ==
LOC: ED 11:12 → MS 11:14
PROVIDERS: ADMIT Internal Medicine
DX: N30.00 Acute cystitis without hematuria (principal); B96.20 Unspecified Escherichia coli [E. coli] as the cause of diseases classified elsewhere; E86.0 Dehydration; G93.41 Metabolic encephalopathy; E87.6 Hypokalemia; I10 Essential (primary) hypertension; E11.9 Type 2 diabetes mellitus without complications; E78.5 Hyperlipidemia, unspecified; E79.0 Hyperuricemia without signs of inflammatory arthritis and tophaceous disease; E03.9 Hypothyroidism, unspecified; M48.061 Spinal stenosis, lumbar region without neurogenic claudication; Z87.891 Personal history of nicotine dependence; Z98.890 Other specified postprocedural states; Z79.84 Long term (current) use of oral hypoglycemic drugs; Z79.1 Long term (current) use of non-steroidal anti-inflammatories (NSAID); Z79.891 Long term (current) use of opiate analgesic; Z79.899 Other long term (current) drug therapy; Z88.5 Allergy status to narcotic agent; Z88.0 Allergy status to penicillin; Z88.8 Allergy status to other drugs, medicaments and biological substances
CPT/HCPCS: 36415; 71045; 80048; 80053; 81001; 83605; 83735; 84484; 85025; 87040; 87077; 87088; 87186; 93005; 93010; 96365; 96366; 96368; 96374; 96375; 96376; 97110; 97116; 97162; 99285-25; G0378; J0692; J0696; J1650; J1815; J3480; J7120

== ENCOUNTER 2018-04-22 14:07 | Emergency (ER) | payer MEDICARE ==
[~2018-04-22] VITALS: Ht 167.6 cm; Wt 122.0 kg
[~2018-04-22 14:07] MED LIST changes: +BACTRIM DS TAB1 EACH PO; +DILAUDID4 MG PO; +DOK100 MG PO; +HYDROXYZINE PAM25 MG PO; +NORCO 5-325 TA1 EACH PO; +ONDANSETRON ODT4 MG PO; +SENNA8.6 MG PO
--- OUTSIDE RECORDS SUMMARY | 2018-04-22 14:12 | XMS ---
PreManage Notification: ERIC RIVERA Security Nurse Clinical Events No recent Security Events currently on file CRITERIA MET - [facility] - [facility] - 2 Visits in 30 Days CARE PROVIDERS FAY MCKEON [facility] 03/01/2018-Current PHONE: Unknown Chapin [place] Current [place] PHONE: Unknown [place] Other Current Orthopedic Surgery \T\ Fracture Clinic PHONE: Unknown Florencia has no Care Guidelines for this patient. E.D. VISIT COUNT (12 MO.) 3 ALONZO Fisher TOTAL 3 NOTE: Visits indicate total known visits. ED/UCC VISIT TRACKING (12 MO.) 04/22/2018 14:07 AL[facility]ZO [facility]ese [place] TYPE: Emergency COMPLAINT: - FALL/INCONTINENT 04/14/2018 11:13 [facility] [place] TYPE: Emergency COMPLAINT: - WEAKNESS 02/27/2018 18:13 [facility] [place] TYPE: Emergency COMPLAINT: - UTI INPATIENT VISIT TRACKING (12 MO.) 04/14/2018 11:14 AL[facility]ese [place] TYPE: Medical Surgical COMPLAINT: - ENCEPHALOPATHY DIAGNOSES: - technician terminal and repeater (current) use of non-steroidal anti-inflammatories (NSAID) - Allergy status to narcotic agent status - Disorientation, unspecified - Type 2 diabetes mellitus without complications - Hyperlipidemia, unspecified - Essential (primary) hypertension - Allergy status to other drugs, medicaments and biological substances status - Metabolic encephalopathy - Allergy status to penicillin - Spinal stenosis, lumbar region without neurogenic claudication - technician terminal and repeater (current) use of oral hypoglycemic drugs - Personal history of nicotine dependence - Other terminal make up operator (current) drug therapy - Hypokalemia - Dehydration - Hyperuricemia without signs of inflammatory arthritis and tophaceous disease - Acute cystitis without hematuria - FDC (current) use of opiate analgesic - Unspecified Escherichia coli [E. coli] as the cause of diseases classified elsewhere - Hypothyroidism, unspecified - Other specified postprocedural states 04/10/2018 08:34 Anna CHILDERS TYPE: Inpatient COMPLAINT: - LUMBAR STENOSIS 02/27/2018 20:42 ALONZO Manuel TYPE: Medical Surgical COMPLAINT: - UTI DIAGNOSES: - Type 2 diabetes mellitus without complications - Spinal stenosis, site unspecified - technician terminal and repeater (current) use of insulin - Spinal stenosis, site unspecified - Hyperlipidemia, unspecified - Essential (primary) hypertension - FDC (current) use of insulin - Sepsis due to Escherichia coli [E. coli] - Gout, unspecified - Hypothyroidism, unspecified - Hyperlipidemia, unspecified - Gout, unspecified - Sepsis due to Escherichia coli [E. coli] - Type 2 diabetes mellitus with hyperglycemia - Urinary tract infection, site not specified - Acute cystitis without hematuria - Type 2 diabetes mellitus with hyperglycemia - Acute cystitis without hematuria - Essential (primary) hypertension - Hypothyroidism, unspecified [email or web address]
== END 2018-04-22 19:19 | disposition short-term general hospital (02) ==
LOC: ED 14:07
PROC: 0T9B70Z Drainage of Bladder with Drainage Device, Via Natural or Artificial Opening (ICD-10-PCS; principal; 2018-04-22)
DX: G83.4 Cauda equina syndrome (principal); E11.9 Type 2 diabetes mellitus without complications; E03.9 Hypothyroidism, unspecified; E66.01 Morbid (severe) obesity due to excess calories; Z87.891 Personal history of nicotine dependence; Z96.653 Presence of artificial knee joint, bilateral; Z88.0 Allergy status to penicillin; Z91.048 Other nonmedicinal substance allergy status; Z88.8 Allergy status to other drugs, medicaments and biological substances; Z88.5 Allergy status to narcotic agent; Z91.013 Allergy to seafood; Z88.1 Allergy status to other antibiotic agents; Z91.012 Allergy to eggs; Z79.899 Other long term (current) drug therapy; Z79.84 Long term (current) use of oral hypoglycemic drugs; Z51.81 Encounter for therapeutic drug level monitoring
CPT/HCPCS: 51701; 72148; 80053; 81001; 85025; 85610; 99285-25

== ENCOUNTER 2018-05-14 11:49 | Observation (INO) | payer MEDICARE ==
[~2018-05-14] VITALS: Ht 167.6 cm; Wt 119.9 kg
--- OUTSIDE RECORDS SUMMARY | 2018-05-14 11:52 | XMS ---
PreManage Notification: ERIC RIVERA Security Talent Sourcer Events No recent Security Events currently on file CRITERIA MET - [facility] - 2 Visits in 30 Days CARE PROVIDERS FAY MCKEON [facility] 03/01/2018-Current PHONE: Unknown Chapin Hawth[place] Current PHONE: Unknown Corbin [place] Current Orthopedic Surgery \T\ Fracture Clinic PHONE: Unknown Florencia has no Care Guidelines for this patient. E.D. VISIT COUNT (12 MO.) 4 ALONZO Fisher TOTAL 4 NOTE: Visits indicate total known visits. ED/UCC VISIT TRACKING (12 MO.) 05/14/2018 11:49 ALONZO Reese [place] TYPE: Emergency COMPLAINT: - WEAKNESS 04/22/2018 14:07 ALONZO Reese [place] TYPE: Emergency COMPLAINT: - POST OP ISSUE DIAGNOSES: - termite exterminator (current) use of oral hypoglycemic drugs - Encounter for therapeutic drug level monitoring - Hypothyroidism, unspecified - Allergy status to penicillin - Allergy status to other drugs, medicaments and biological substances status - Morbid (severe) obesity due to excess calories - Other nonmedicinal substance allergy status - Presence of artificial knee joint, bilateral - Functional urinary incontinence - Allergy status to other antibiotic agents status - Allergy to eggs - Personal history of nicotine dependence - Cauda equina syndrome - Other alf (current) drug therapy - Allergy status to narcotic agent status - Type 2 diabetes mellitus without complications - Allergy to seafood 04/14/2018 11:13 AL[facility] [place] TYPE: Emergency COMPLAINT: - WEAKNESS 02/27/2018 18:13 AL[facility] Reese [place] TYPE: Emergency COMPLAINT: - UTI INPATIENT VISIT TRACKING (12 MO.) 04/25/2018 13:46 Anna CHILDERS TYPE: Rehab COMPLAINT: - CAUDA EQUINA SYNDROME 04/22/2018 20:45 Anna CHILDERS TYPE: Inpatient COMPLAINT: - RULE OUT CAUDA EQUINA SYNDROME 04/14/2018 11:14 ALONZO Manuel TYPE: Medical Surgical COMPLAINT: - ENCEPHALOPATHY DIAGNOSES: - shelter (current) use of non-steroidal anti-inflammatories (NSAID) - Allergy status to narcotic agent status - Disorientation, unspecified - Type 2 diabetes mellitus without complications - Hyperlipidemia, unspecified - Essential (primary) hypertension - Allergy status to other drugs, medicaments and biological substances status - Metabolic encephalopathy - Allergy status to penicillin - Spinal stenosis, lumbar region without neurogenic claudication - shelter (current) use of oral hypoglycemic drugs - Personal history of nicotine dependence - Other joint terminal attack controller (current) drug therapy - Hypokalemia - Dehydration - Hyperuricemia without signs of inflammatory arthritis and tophaceous disease - Acute cystitis without hematuria - termite exterminator (current) use of opiate analgesic - Unspecified Escherichia coli [E. coli] as the cause of diseases classified elsewhere - Hypothyroidism, unspecified - Other specified postprocedural states 04/10/2018 08:34 Anna CHLIDERS TYPE: Inpatient COMPLAINT: - LUMBAR STENOSIS 02/27/2018 20:42 ALONZO Manuel TYPE: Medical Surgical COMPLAINT: - UTI DIAGNOSES: - Type 2 diabetes mellitus without complications - Spinal stenosis, site unspecified - termite exterminator (current) use of insulin - Spinal stenosis, site unspecified - Hyperlipidemia, unspecified - Essential (primary) hypertension - shelter (current) use of insulin - Sepsis due [...] - Essential (primary) hypertension - Hypothyroidism, unspecified [email or web address]
--- NOTE | 2018-05-14 13:40 | EKG ---
[facility] [address] [place] [address] Signed Normal sinus rhythm Normal ECG When compared with ECG of 14-APR-2018 11:35, T wave inversion less evident in Inferior leads Confirmed by OLGA NORTON DO ([id number]) on 05/14/2018 1:40:36 PM Electronically Signed By: OLGA NORTON DO 05/14/18 1340 PATIENT NAME: ERIC RIVERA DERICKPRAVIN Electrocardiogram DATE OF : 46 PHYSICIAN: OLGA NORTON DO REPORT #: [id number] REPORT IS CONFIDENTIAL AND NOT TO BE RELEASED WITHOUT AUTHORIZATION
--- NOTE | 2018-05-14 17:20 | NUR ---
PT ARRIVED TO FLOOR FROM ER VIA STRETCHER. ORIENTED TO ROOM AND CALL LIGHT. ADMISSION COMPLETE. SON AT BEDSIDE.
--- NOTE | 2018-05-14 18:00 | NUR ---
IN ROOM WITH PTFloresita
--- NOTE | 2018-05-14 19:25 | NUR ---
CHARGE NURSE REPORT RECEIVED, PT IN BED, WATCHING TV.
--- NOTE | 2018-05-14 22:39 | NUR ---
ASSESSMENT AND MEDICATIONS DUE. pt ALERT AND ORIENTED. REPORTED 8/10 PAIN. PRN PAIN MEDICATION GIVEN (SEE MAR). ASSESSMENT DONE. SLIGHT WEAKNESS IN LEGS NO DIFFERENT BETWEEN SIDES. INCONTINENT. CHANGED, PERICARE DONE. DRESSING CHANGED. NO REQUESTS AT THIS TIME.
--- NOTE | 2018-05-15 01:48 | NUR ---
ASSESSMENT DONE. pt REPORTED PAIN 11/16. PRN PAIN MED GIVEN (SEE MAR). LUI BUTLER ASSISTED TO CHANGE DEPENDS AND REPOSITION IN BED. WOUND HAS YELLOW DRAINAGE, DRESSING 50% SATURATED. CALL LIGHT WITHIN REACH.
--- NOTE | 2018-05-15 02:00 | NUR ---
ASSESSMENT DONE. NO CHANGES FROM PRIOR ASSESSMENT.
--- NOTE | 2018-05-15 03:53 | NUR ---
ROUNDED ON pt. RESTING WITH EYES CLOSED, RESPIRATIONS REGULAR, RATE = 18. CALL LIGHT WITHIN REACH.
--- NOTE | 2018-05-15 06:12 | NUR ---
ASSESSMENT DONE. NO DEFICITS NOTED. MEDICATION GIVEN (SEE MAR). CALL LIGHT WITHIN REACH.
--- NOTE | 2018-05-15 06:28 | NUR ---
pt RESTED ON AND OFF DURING NIGHT. ACCU CHECKS. INCONTINENT OF URINE. IVF INFUSING. TELE 4. WOUND TO LOWER BACK FROM PRIOR SURGERY, DRESSING CHANGED. NEURO CHECKS Q4, NO DEFICITS NOTED. SOME JERKING MOVEMENTS. MRI TODAY. USES CALL LIGHT BUCK
--- NOTE | 2018-05-15 07:15 | NUR ---
Shift report. PT AAOX3. No needs stated at this time.
--- NOTE | 2018-05-15 07:45 | NUR ---
Echo in progress at this time. PT given 2 mg dilaudid for pain 10/16.
--- NOTE | 2018-05-15 07:45 | NUR ---
PATIENT LAYING DOWN IN BED, IMAGING AT BEDSIDE WITH PATIENT AT THIS TIME.
--- NOTE | 2018-05-15 08:12 | NUR ---
ECHO COMPLETE, PATIENT TO MRI. BG CHECK IS 163.
--- NOTE | 2018-05-15 09:10 | NUR ---
0900 Meds administered. PT able to take PO Meds independletly. Nursing assessment completed. PT has left sided weakness complains of tingling and numbness in left indext finger and Left thumb. PT talkitive and smiling. PT statesd no additional needs at this time.
--- NOTE | 2018-05-15 09:48 | NUR ---
MORNING ASSESSMENT DONE. PATIENT RATED BACK PAIN 4-5/10 AFTER MEDICATION. PATIENT IS NOT NAUSEATED, HAS HAD BREAKFAST. DOPPLER TO BE DONE SOON. PATIENT DENIES OTHER NEEDS.
--- NOTE | 2018-05-15 10:10 | NUR ---
PT awake using personal cell phone. PT describes lower back pain a 4/10. PT states no additional needs at this time.
--- NOTE | 2018-05-15 10:50 | NUR ---
PATIENT SITTING UP IN BED, CALL LIGHT IN REACH.
--- NOTE | 2018-05-15 11:24 | NUR ---
PATIENT SLEEPING WITH REGULAR RESPIRATIONS.
--- NOTE | 2018-05-15 13:00 | NUR ---
Bed bath given. PT expresses difficulty moving legs states "I cant move my legs at all". Redness Noted under both breasts and lower pannius. Dressing convering the surgical wound on lower back has sloughed off. Pt states no needs at this time
--- NOTE | 2018-05-15 13:15 | NUR ---
Dilaudid 2mg given for back pain 11/16. Drsg changed lower back. Wound [id number] unknown depth green yellow dischqarge. Dr Barrera notified/inspected wound. New 4 X4 Allevan dressing appied over wound. Nystatin applied to lower breasts and pannus. PT now repositioning with both legs with some staff assistance. PT states no additional needs at this time.
--- NOTE | 2018-05-15 13:50 | NUR ---
VS taken documented. PT awake talking with son and discharge nurse. No needs stated at this time.
--- NOTE | 2018-05-15 14:08 | NUR ---
AFTERNOON ASSESSMENT DONE. DRESSING REMOVED TO LUMBAR AREA DURING BED BATH. DR. MILLER IN TO VISUALIZE WOUND BEFORE DRESSING REPLACED. LUMBAR SPINAL INCISION HAS 1 CM (APPROX OPENING) DR. MILLER PALPATED AREA, BUBBLING NOTED WELL SEROUS DRAINAGE. DR. MILLER INDICATED TO REDRESS WOUND WITH ALLEVYN.
--- NOTE | 2018-05-15 14:36 | NUR ---
Dilaudid 2 mg given for back pain 11/16. Dressing changed lower back. Wound 1in X 1in unknown depth. Yellow Green discharge from the wound. DR. Barrera notified inspected wound. New 4 in X 4in Allevan dressing applied over wound. Nystatin applied under breasts and pannus. PT now using both legs and some assistance from staff. PT states no additional needs at this time.
--- NOTE | 2018-05-15 15:05 | NUR ---
Gabapentin administered. PT repostioned self with some assistance from staff. PT states no additional needs at this time.
--- NOTE | 2018-05-15 16:12 | NUR ---
Medications reconciled using pharmacy records and current medication list
--- NOTE | 2018-05-15 17:00 | NUR ---
PATIENT RESTING IN BED. DR. MILLER IN TO SEE PATIENT. FAMILY IN WITH PATIENT.
--- NOTE | 2018-05-15 17:44 | NUR ---
PATIENT TALKING WITH FAMILY, CALL LIGHT IN REACH, NO OTHER NEEDS AT THIS TIME.
--- NOTE | 2018-05-15 19:16 | NUR ---
RECEIVED REPORT FROM LUI WOOD. pt ALERT AND AWAKE. WHITEBOARD UPDATED. REQUESTED PAIN PILL WITH EVENING MEDS.
--- NOTE | 2018-05-15 21:52 | NUR ---
ASSESSMENT AND MEDICATIONS DUE. ASSESSMENT DONE. PERICARE DONE, NYSTATIN APPLIED, RED AREAS IN GROIN AND UNDER BREAST. LINENS CHANGED. MEDICATIONS GIVEN (SEE MAR). PAIN 8/10 PRN PAIN PILL GIVEN. pt POSITIONED FOR COMFORT AND SLEEP. NO FURTHER REQUESTS AT THIS TIME. CALL LIGHT WITHIN REACH.
--- NOTE | 2018-05-15 23:34 | NUR ---
V/S AND I&O DONE AND CHARTED. RN SKYLAR I AND CHANGED PATIENT'S ATTENDS/INCONTINENT. ICE WATER REFILLED. SIDE TABLE AND CALL LIGHT WITHIN REACH.
--- NOTE | 2018-05-15 23:43 | NUR ---
ROUNDED ON pt. RESTING WITH EYES CLOSED, RESPIRATIONS REGULAR. RATE = 16. CALL LIGHT WITHIN REACH.
--- NOTE | 2018-05-16 00:51 | NUR ---
ROUNDED ON pt. RESTING WITH EYES CLOSED, RESPIRATIONS REGULAR, RATE = 18. CALL LIGHT WITHIN REACH.
--- NOTE | 2018-05-16 03:41 | NUR ---
CALL LIGHT ON, pt REPORTED 8/10 PAIN. ASSESSMENT DONE. PRN PAIN MEDICATION GIVEN (SEE MAR). RACHELLE CARE DONE. CALL LIGHT WITHIN REACH.
--- NOTE | 2018-05-16 05:29 | NUR ---
pt RESTED MOSTED OF THE SHIFT. PRN PAIN MEDICATION X2. INCONT OF URINE. IV SL. ACCU CHECKS. USES CALL LIGHT APPROPRIATELY.
--- NOTE | 2018-05-16 07:18 | NUR ---
REPORT RECEIVED FROM LUI CHENG. PT AWAKEN AND TEXTING GRAND DAUGHTER ON PHONE. PT REPORTS 5/10 PAIN THAT IS TOLERABLE AND DENIES NEED FOR PAIN MEDICAITON AT THIS TIME. SCD'S IN PLACE. PT ANTICIPATING PT/OT TODAY. NO ADDIITONAL REQUESTS OR COMPLAINTS AT THIS TIME. BED RAILS UP. CALL LIGHT WITHIN REACH.
--- NOTE | 2018-05-16 08:00 | NUR ---
MORNING ASSESSMENT AND MEDICATIONS DUE. PT WATCHING TV. CGB TAKEN = 210. PT REPORTS 7/10 PAIN. PT AGREES TO TAKE "ONLY ONE" AVERY, PT STATES "I DON'T KNOW WHY THE DOCTOR CANCELED THE DILAUDID. I LIKE IT BETTER." ASSESSMENT DONE. ASSISTANT ASSOCIATE PROFESSOR STRENGTH EQUAL BILATERAL UPPER EXTREMITIES. PT ABLE TO HOLD ARMS OUT AND LEGS UP FOR GREATER THAN 10 SECONDS WITH NO DRIFT NOTED. PT CONTINUES TO REPORT WEAKNESS. MINOR WEAKNESS NOTED IN LLE. MINOR SWELLING NOTED IN LLE. PT ENCOURAGED TO GET UP TO CHAIR. 1PA, FWW UP TO CHAIR. DEPENDS CHANGED. DRESSING TO LUMBAR AREA SATURATED WITH YELLOW DRANAGE, DRESSING CHANGED. RESTING IN CHAIR EATING BREAKFAST. NO ADDITIONAL REQUESTS OR COMPLAINTS. CALL LIGHT WITHIN REACH.
--- NOTE | 2018-05-16 09:32 | NUR ---
GOT THE PT. BACK TO BED FROM THE CHAIR, CHANGED HER BRIEF, SHE HAD A VERY SMALL BM, CALL LIGHT IN PLACE AND ALSO GOT HER A COMPLIMENTARY GOODIE BAG
--- NOTE | 2018-05-16 09:52 | NUR ---
THIS RN TO ROOM TO CHECK ON PT. PT IS BACK TO BED STATING "I WAS JUST GETTING TOO TIRED." PT REPORTS 4/10 PAIN THAT IS TOLERABLE, PT DENIES NEED FOR ADDITIONAL MEDICAITON. PT PLAYING ON PHONE. ICE PROVIDED. NO ADDITIONAL REQUESTS OR COMPLAINTS AT THIS TIME.
--- NOTE | 2018-05-16 11:43 | NUR ---
PT CALL LIGHT ON. PT STATES SHE NEEDS CHANGED. THIS RN TO ROOM. PT UP TO STAND WITH FWW. DEPENDS SATURATED. PT REQUESTS TO WALK TO TOILET. PT ABLE TO HAVE LARGE FORMED BM. PT WALKS TO CHAIR. NO WEAKNESS NOTED. ASSESSMENT DONE. PT CONTINUES TO STATE LEFT SIDE IS WEEK "ESPICIALLY WHEN I TRY TO MOVE THINGS" PT DEMONSTARATES MOVING CALL LIGTH TO NEAR BY STAND, TREMBLING NOTED. HARRY NOTED, PT ABLE TO HOLD HANDS OUT FOR 10 SECONDS WITH NO DRIFT NOTED. EQUAL STRENGTH IN LEGS WHEN MOVING HEEL TO KNEE. PT ABLE TO ELEVATE LEG FOR 10 SECONDS WITH NO DRIFT NOTED. DRESSING TO LUMBAR AREA SHOWS SMALL AMOUT OF YELLOW SHADOWING. PT UP TO CHAIR AWAITING MRI, NO ADDITIONAL REQUESTS OR COMPLAINTS AT THIS TIME. CALL LIGHT WITHIN REACH.
--- NOTE | 2018-05-16 12:07 | NUR ---
MRI TECHNITIANS ARRIVED TO TAKE PT FOR IMAGING. PT CONTINUES TO REPORT 4/10 PAIN, MEDICATION GIVEN IN ANTICIPATION OF BACK PAIN FROM THE MRI BED. INSULIN HELD AT THIS TIME UNTIL PT RETURNS FOR LUNCH. PT TRANSFERES SELF TO MRI BED WITH 1PA AND FWW. NO ADDITIONAL REQUESTS OR COMPLAINTS AT THIS TIME.
--- NOTE | 2018-05-16 12:38 | NUR ---
PATIENT SAID SHE MIGHT TAKE A SHOWER TODAY.
--- NOTE | 2018-05-16 12:50 | NUR ---
CALLED AND TALKED WITH [facility], THEY SAID AT THIS POINT THEY HAVE NO BEDS, THE SOONEST THEY WOULD POSSIBLE HAVE A BED WOULD BE ON SUNDAY. JESSIE (ADMISSIONS INTAKE) STATED THAT THE PT HAS TO HAVE A CONFIRMED DX AND BE PARTICIPATING WITH PT AND OT FOR A 3HRS/DAY THERAPIES BEFORE THEY WOULD CONSIDER TAKING HER. TOLD HER I WOULD KEEP THEM INFORMED ABOUT TEST RESULTS ETC.
--- NOTE | 2018-05-16 13:43 | NUR ---
PT RETURNED FROM MRI. PT TRANSFERES SELF BACK TO BED WITH SBA AND FWW. INSULIN GIVEN. PT REPORTS 6/10 PAIN THAT "SHOULD GO DOWN AFTER I REST A BIT." PT EATING LUNCH. NO ADDITIONAL REQUESTS OR COMPLAINTS AT THIS TIME. BED RAILS UP. CALL LIGHT WITHIN REACH.
--- NOTE | 2018-05-16 14:32 | NUR ---
TALKED WITH PT ABOUT THE REQUIREMENTS TO GO TO [facility] PART OF THAT BEING THAT SHE NEEDS TO PARTICIPATE IN 3 HOURS OF THERAPY A DAY AND THAT THERE BE A BED AVAILABLE AND THEY HAVE TO HAVE A DEFINITIVE DX, WHICH YET THEY DO NOT HAVE. PT STATING WELL I DO THAT STUFF BY MYSELF I HAVEN'T DONE IT WITH THERAPY. EXPLAINED HER NEED AND THAT SHE SHOULDN'T BE REFUSING TO DO HER THERAPY. PT THEN STATED THAT SHE IS HOPING TO BE ABLE TO RETURN HOME WITH SOME THERAPY WORK. WE ALSO TALKED ABOUT [facility] A POSS IF SHE NEEDED SNF. SHE STATED THAT WOULD BE FINE IF SHE NEEDED.
--- NOTE | 2018-05-16 15:28 | NUR ---
MEDICATION DUE. THIS RN TO BEDSIDE. PT REPORTS 5/10 PAIN. PT DENIES NEED FOR PAIN MEDICATION AT THIS TIME. PT UP TO STAND, DEPENDS CHANGED, RACHELLE CARE DONE. PT BACK TO BED. NO ADDITIONAL REQUESTS OR COMPLAINTS AT THIS TIME. BED RAILS UP. CALL LIGHT WITHIN REACH.
[2018-05-16] MEDS ORDERED: CLARITIN10 MG PO (17:09)
[2018-05-16] MEDS ORDERED: HUMALOG100 UNITS/ SUB-Q (17:10)
[2018-05-16] MEDS ORDERED: ONE TOUCH ULTR1 EACH VI (17:11)
[2018-05-16] MEDS ORDERED: NORCO 5-325 TA1 EACH PO ×2 (17:12→17:29)
--- NOTE | 2018-05-16 17:26 | NUR ---
AFTERNOON ASSESSMENT DUE. PT PLAYING ON PHONE. PT REPORTS 6/10 PAIN, SEE MAR FOR MEDICATION GIVEN. ASSESSMENT DONE. PT ABLE TO HOLD HANDS AND FEET ELEVATED FOR 10 SECTONS. STRENGHT EQUAL BILATERALLY. HARRY BOYD NOTED. PT DENIES NAUSEA. MEDICATIONS GIVEN. DRESSING ON LUMBAR AREA SHOWS INCREASED YELLOW DRAINAGE, NOW MODERATE AMOUNT. PT EATING DINNER AND VISITING WITH FAMILY. NO ADDITIONAL REQUESTS OR COMPLAINTS. CALL LIGHT WITHIN REACH. BED RAILS UP.
--- NOTE | 2018-05-16 18:04 | NUR ---
PT HERE FOR POSSIBLE TIA. LEFT SIDED WEAKNESS IMPROVED TODAY. PT ABLE TO AMBULATE TO BATHROOM, CHAIR, AND WITH PHYSICAL THERAPY. MRI DONE TODAY. PRN NORCO GIVEN X3 FOR 5-6/10 BACK PAIN. ALLEVYN DRESSING TO LOWER BACK WOUND CONTINUES TO SHOW YELLOW DRAINAGE, DRESSING CHANGED TODAY. PT/OT INVOLVED. PTS HOME ABX ADDED TO EMAR TODAY. BLOOD SUGARS CONTINUE TO BE ELEVATED TODAY, SLIDING SCALE INSULINE. INCONTINANCE CONTINUES, DEPENDS IN PLACE. PT UP TO TOILET TODAY FOR BM. PT ANTICIPATING DISCHARGE TO [facility] [facility] TOMORROW. PT USES CALL LIGHT APPROPRIATLY.
--- NOTE | 2018-05-16 19:10 | NUR ---
SHIFT REPORT RECEIVED FROM [facility] LUI BERRY. PT AWAKE, RESTING IN BED. RR EVEN AND UNLABORED. NO ADDITIONAL NEEDS AT THIS TIME, CALL LIGHT IN REACH.
--- NOTE | 2018-05-16 21:18 | NUR ---
PT CALLED TO BE CHANGED, SHE HAS FRESH ATTENDS IN PLACE. PT DENIES FURTHER NEEDS AT THIS TIME. CALL LIGHT IS CLOSE.
--- NOTE | 2018-05-16 21:45 | NUR ---
ASSESSMENT COMPLETE. SCHEDULED MEDICATIONS GIVEN (SEE EMAR). PT A/OX4, RATES PAIN 11/16. ONE NORCO GIVEN. RACHELLE CARE COMPLETE, SCHEDULED NYSTATIN APPLIED. PT INCONTINENT, NEW ATTENDS IN PLACE. WARM BLANKET GIVEN PER PT REQUEST. NO FURTHER NEEDS. CALL LIGHT IN REACH.
--- NOTE | 2018-05-16 22:36 | NUR ---
VITALS AND I&OS DONE AND CHARTED. BEDSIDE TABLE AND CALL LIGHT IN REACH.
--- NOTE | 2018-05-17 00:51 | NUR ---
PT RESTING IN BED, EYES CLOSED, RR EVEN AND UNLABORED. PT APPEARS COMFORTABLE. CALL LIGHT IN REACH. SCD'S IN PLACE.
--- NOTE | 2018-05-17 03:50 | NUR ---
ASSESSMENT COMPLETE. NO NEW CONCERNS. PT A/OX4. 1 NORCO ADMINISTERED FOR PAIN IN BACK. ATTENDS DRY AT THIS TIME. NO FURTHER NEEDS. CALL LIGHT IN REACH.
--- NOTE | 2018-05-17 05:39 | NUR ---
PT HAD A REBECA. PAIN WELL CONTROLLED WITH PRN PAIN MEDICATIONS. PT SBA WITH AMBULATION W/ FWW. PT ON ADA DIET, TOLERATING WELL, BOWEL TONES ACTIVE. SCHDULED ACCUCHECKS WITH INSULIN SS. PT INCONTINENT OF URINE, REDDENED RACHELLE AREA, SCHEDULED NYSTATIN. SCHEDULED DISCHARGE TODAY TO [facility]. PT USES CALL LIGHT APPROPERIATELY.
--- NOTE | 2018-05-17 06:41 | NUR ---
MEDICATION DUE AND GIVEN PER REQUEST BY PRIMARY NURSE (SEE MAR). NO REQUESTS AT THIS TIME. CALL LIGHT WITHIN REACH.
--- NOTE | 2018-05-17 07:23 | NUR ---
AFTER DR MILLER TALKED WITH PT YESTERDAY AFTERNOON THE DECISION WAS MADE FOR HER TO GO TO [facility]. FAXED CHART NOTES INCLUDING FACE SHEET, ER NOTES AND SUMMARY, H AND P, PROG NOTES, IMAGING, AND PT AND OT EVALS AND NOTES TO [facility]. RECIEVED FAX CONFIRMATION.
--- NOTE | 2018-05-17 08:09 | NUR ---
PATIENT STANDBY ASSISTED UP TO THE BATHROOM, HER ATTENDS WERE DRY AND SHE VOIDED AND HAD A BM. RACHELLE CARE DONE AND PATIENT AMBULATED WITH FWW UP TO THE CHAIR. SHE WAS STEADY ON HER FEET. ALLEVYN DRESSING TO LOWER BACK WAS SATURATED AT THIS TIME, WILL CHANGE IT AFTER BREAKFAST. PATIENT IS ALERT AND ORIENTED AND NEUROLOGICALLY WNL AT THIS TIME.
--- NOTE | 2018-05-17 10:19 | NUR ---
PATIENT GETTING UP TO THE SHOWER WITH ASSISTANCE OF THE WAREHOUSE CHECKER AT THIS TIME. IV REMOVED FROM THE LEFT A/C TIP INTACT.
--- NOTE | 2018-05-17 10:48 | NUR ---
PT ALERT, ORIENTED AND SITTING IN CHAIR. PT STATED SHE SLEPT REASONABLY WELL LAST NIGHT. SHE APPARENTLY CAN OCCUPY HERSELF AND SHE THINKS DOESN'T NEED ALOT OF ATTENTION. PT TOLD ME SHE IS TO BE DC'D TO [facility] TODAY. I DETECTED A HINT OF DISAPPOINTMENT IN HER VOICE. I LET HER CONTINUE RELEASING. I THEN ENCOURAGED HER TO THINK OF [facility] A TOOL TO GET TO WHERE SHE WANTS TO BE. HER PHONE THEN RANG-SHE ANSWERED. WILL CONTINUE TO FOLLOW
--- NOTE | 2018-05-17 11:00 | NUR ---
PATIENT VITAL DONE AND SHE IS DRESSED AND READY TO D/C TO [facility]. PHYSICAL THERAPY WORKED WITH HER QUICKLY BEFORE D/C PAIN LEVEL AT A 10/16 1 NORCO GIVEN PO NOW.
--- NOTE | 2018-05-17 11:23 | NUR ---
PATIENT TOOK A SHOWER I STOOD BY IN CASE SHE NEEDED HELP. SHE DID NEED HELP WASHING HER BACK AND FEET. HELPED HER GET DRESSED. THAN SHE DID 1 LAP WITH PYSICAL THERAPY. BEFORE SHE LEFT.
--- NOTE | 2018-05-17 11:28 | NUR ---
REPORT CALLED TO [facility] AT THIS TIME
== END 2018-05-17 11:10 ==
LOC: ED 11:49 → MS 11:50
PROVIDERS: ADMIT Internal Medicine
DX: G45.1 Carotid artery syndrome (hemispheric) (principal); M47.812 Spondylosis without myelopathy or radiculopathy, cervical region; M50.30 Other cervical disc degeneration, unspecified cervical region; M48.02 Spinal stenosis, cervical region; M47.816 Spondylosis without myelopathy or radiculopathy, lumbar region; M51.36 Other intervertebral disc degeneration, lumbar region; I10 Essential (primary) hypertension; N28.89 Other specified disorders of kidney and ureter; E66.01 Morbid (severe) obesity due to excess calories; E11.65 Type 2 diabetes mellitus with hyperglycemia; E78.5 Hyperlipidemia, unspecified; E79.0 Hyperuricemia without signs of inflammatory arthritis and tophaceous disease; G89.4 Chronic pain syndrome; Z98.890 Other specified postprocedural states; Z88.5 Allergy status to narcotic agent; Z88.0 Allergy status to penicillin; Z88.8 Allergy status to other drugs, medicaments and biological substances; Z79.84 Long term (current) use of oral hypoglycemic drugs; Z79.1 Long term (current) use of non-steroidal anti-inflammatories (NSAID); Z79.899 Other long term (current) drug therapy; Z79.2 Long term (current) use of antibiotics; Z68.41 Body mass index [BMI] 40.0-44.9, adult; Z87.891 Personal history of nicotine dependence
CPT/HCPCS: 36415; 51701; 70450; 70551; 72141; 72158; 80053; 80061; 81001; 83036; 84484; 85025; 93005; 93010; 93306; 93880; 96360; 96361; 97110; 97116; 97162; 97165; 99285-25; A9579; G0378; J1815; J7120

== ENCOUNTER 2022-11-12 16:47 | Inpatient (IN) | payer MEDICARE | END 2022-11-15 11:25 | DRG 565 | LOC: ED 16:47 → MS 20:17 | PROVIDERS: ADMIT Internal Medicine | DX: S22.21XA Fracture of manubrium, initial encounter for closed fracture (principal); Z68.41 Body mass index [BMI] 40.0-44.9, adult; S82.832A Other fracture of upper and lower end of left fibula, initial encounter for closed fracture; E11.9 Type 2 diabetes mellitus without complications; M48.00 Spinal stenosis, site unspecified; E05.90 Thyrotoxicosis, unspecified without thyrotoxic crisis or storm; M10.9 Gout, unspecified; I10 Essential (primary) hypertension; E78.00 Pure hypercholesterolemia, unspecified; M81.0 Age-related osteoporosis without current pathological fracture; M19.90 Unspecified osteoarthritis, unspecified site; E66.01 Morbid (severe) obesity due to excess calories; W19.XXXA Unspecified fall, initial encounter; Z96.653 Presence of artificial knee joint, bilateral; Z98.890 Other specified postprocedural states; Z88.0 Allergy status to penicillin; Z88.8 Allergy status to other drugs, medicaments and biological substances; Z91.012 Allergy to eggs; Z91.013 Allergy to seafood; Z91.041 Radiographic dye allergy status; Z79.4 Long term (current) use of insulin; Z79.890 Hormone replacement therapy; Z79.899 Other long term (current) drug therapy; Z79.83 Long term (current) use of bisphosphonates; Z71.3 Dietary counseling and surveillance ==

== ENCOUNTER 2024-08-15 14:30 | Emergency (ER) | payer MEDICARE ==
[~2024-08-15 14:30] MED LIST changes: +ALENDRONATE SOD70 MG PO; +ALLER-TEC10 MG PO; +CARVEDILOL12.5 MG PO; +CARVEDILOL25 MG PO; +CLARITIN10 MG PO; +HUMALOG100 UNITS/ SUB-Q; +HUMULIN R100 UNIT/1 SUB-Q; +HYDROCODON-ACE1 EA10 PO; +ONE TOUCH ULTR1 EACH VI
[2024-08-15] MEDS ORDERED: ALBUTEROL/IPRATROPIUM 3 ML NEB ONE (15:05)
[2024-08-15] MEDS ORDERED: ALBUTEROL/IPRATROPIUM 3 ML NEB INH ONE (15:15)
[2024-08-15] MEDS ORDERED: VENTOLIN HFA18 GM INH ×2 (15:25→18:49)
[2024-08-15] MEDS ORDERED: CETIRIZINE HCL10 MG PO (18:49)
[2024-08-15 19:07] VITALS: BP 137/54
== END 2024-08-15 20:02 | disposition home or self-care (01) ==
LOC: ED 14:30
DX: R06.02 Shortness of breath (principal); Z88.0 Allergy status to penicillin; Z91.041 Radiographic dye allergy status; Z88.8 Allergy status to other drugs, medicaments and biological substances; Z88.5 Allergy status to narcotic agent; Z79.899 Other long term (current) drug therapy; Z79.890 Hormone replacement therapy; E11.9 Type 2 diabetes mellitus without complications; Z87.891 Personal history of nicotine dependence
CPT/HCPCS: 71045; 93005; 93010; 99285-25